=== PATIENT | male | born 1990 | race Caucasian/White ===

== ENCOUNTER 2018-01-17 06:15 | Emergency (ER) | payer SELFPAY ==
[~2018-01-17] VITALS: Ht 182.9 cm; Wt 68.1 kg
[2018-01-17] MEDS ORDERED: SUBUTEX PO (06:28)
[2018-01-17] MEDS ORDERED: NAPROSYN500 MG PO (11:08)
[2018-01-17] MEDS ORDERED: FLEXERIL PO (11:08)
[2018-01-17 11:17] VITALS: BP 123/60
== END 2018-01-17 11:58 | disposition home or self-care (01) | DRG 552 ==
LOC: ED 06:15
DX: S33.5XXA Sprain of ligaments of lumbar spine, initial encounter (principal); F17.210 Nicotine dependence, cigarettes, uncomplicated; X50.0XXA Overexertion from strenuous movement or load, initial encounter; Y93.89 Activity, other specified

== ENCOUNTER 2018-07-31 19:39 | Emergency (ER) | payer OTHER ==
[~2018-07-31] VITALS: Ht 182.9 cm; Wt 68.1 kg
[~2018-07-31 19:39] MED LIST: FLEXERIL PO; NAPROSYN500 MG PO; SUBUTEX PO
[2018-07-31] MEDS ORDERED: BUPRENORPHIN8 MG SL (19:59)
[2018-07-31] MEDS ORDERED: NAPROSYN500 MG PO (20:05)
[2018-07-31 20:10] VITALS: BP 125/80
== END 2018-07-31 20:10 | disposition home or self-care (01) ==
LOC: ED 19:39
DX: K08.89 Other specified disorders of teeth and supporting structures (principal); S02.5XXA Fracture of tooth (traumatic), initial encounter for closed fracture; F17.210 Nicotine dependence, cigarettes, uncomplicated